=== PATIENT | female | born 1970 | race Caucasian/White ===

== ENCOUNTER → 2017-11-02 | Outpatient (CLI) | payer OTHER ==
[~2017-11-02] MED LIST: ALBU90OI6; BUDE200IP; FERR325 PO; FLUT.05NI; IBUHYD PO; OMEP20ER PO; PROG100 PO; PROM25; PROM25 PO; RXPROM25 PO
== END | disposition home or self-care (01) ==
LOC: LAB SHORT 10:32 → PLD 10:32
DX: D48.5 Neoplasm of uncertain behavior of skin (principal)
CPT/HCPCS: 88305

== ENCOUNTER → 2020-10-19 | Outpatient (CLI) | payer OTHER ==
[~2020-10-19] MED LIST changes: +BUSP10 PO; +ESTROGEN CREAM; +NALTREXONE PO
== END | disposition home or self-care (01) ==
LOC: LAB 12:28 → LAB SHORT 12:28
DX: D18.01 Hemangioma of skin and subcutaneous tissue (principal)
CPT/HCPCS: 88305

== ENCOUNTER 2022-05-02 05:57 | Day surgery (SDC) | payer BC ==
[~2022-05-02] VITALS: Ht 170.2 cm; Wt 57.4 kg
[~2022-05-02 05:57] MED LIST changes: -ESTROGEN CREAM; +ESTROGEN CREAM TOP; +TRAM50 PO; +[UNRECOGNIZED DRUG - OTHER] PO
--- NOTE | 2022-05-02 06:58 | NUR ---
History, Chart, Medications and Allergies reviewed before start of procedure. Lungs clear T/O to Auscultation. Patient confirms NPO status and agrees with scheduled surgery. Pre-Op teaching done. Pt verbalizes understanding. PT ALLERGIES RECONCILED WITH PT. AND REPORTED TO DR KHANNA. PT BELONGINGS PLACED UNDERNEATH [facility] FOR SAFEKEEPING.
--- NOTE | 2022-05-02 07:35 | NUR ---
DR KHANNA OKAYED TO GIVE OXYCODONE PREOP. PT HEARING AIDS GIVEN TO FOR SAFEKEEPING.
--- NOTE | 2022-05-02 12:07 | NUR ---
PT ARRIVED TO THE ROOM AT 1105. PT'S AT THE BEDSIDE. PT RATED PAIN AT 5/10 AND STATED PAIN WAS TOLERABLE. ALLERGIES CLARIFIED AND UPDATED IN COMPUTER, ALLERGIES ALSO WRITTEN ON THE WHITEBOARD IN PT'S ROOM. WILL CONTINUE TO MONITOR.
--- NOTE | 2022-05-02 12:13 | NUR ---
LOW BLOOD PRESSURE PT'S BLOOD PRESSURE IS LOW AT THIS TIME 88/49. PT IS ASYMPTOMATIC. HR DID INCREASE TO 90. SURGICAL SITE IS WNL WITH NO INCREASED SWELLING. WILL CONINUE TO MONITOR AND PROVIDE HYDRATION. PT EDUCATED ABOUT SIGNS/SYMPTOMS OF LOW BLOOD PRESSURE. WILL CONTINUE TO MONITOR.
--- NOTE | 2022-05-02 20:05 | NUR ---
SHIFT SUMMARY PT IS POD #0 FROM R HIP REPAIR WITH DR. KHANNA. PT HAS BEEN OOB AND WALKED TO THE BATHROOM. SHE HAS VOIDED. PT TOLERATED PO. PAIN MANAGED WITH OXYCODONE. PT HAS HAD A LOW BLOOD PRESSURE. BOLUS OF NS GIVEN WITHOUT IMPROVEMENT IN BP. PT REMAINED ASYMPTOMATIC AFTER BOLUS AND IS VOIDING. DR. KHANNA NOTIFIED OF CONTINUED LOW BP, WAITING FOR RETURN CALL-COLBY SOLIS NOTIFIED. IV FLUIDS RUNNING ORDERED. REPORT GIVEN TO COLBY SAWANT.
--- NOTE | 2022-05-02 20:30 | NUR ---
BP: DR KHANNA NOTIFIED OF PT'S ONGOING HYPOTENSION. PT REMAINS ASYMPTOMATIC. NO NEW ORDERS REC AT THIS.
[2022-05-03 04:31] LABS: BASOPHILS ABSOLUTE AUTO 0.01 K/mm3 (0.00-0.23); BASOPHILS PERCENT AUTO 0 % (0-2); EOSINOPHILS ABSOLUTE AUTO 0.01 K/mm3 (0.00-0.68); EOSINOPHILS PERCENT AUTO 0 % (0-6); Hemoglobin 9.5 g/dL (11.5-16.0); IMMATURE GRAN ABSOLUTE AUTO 0.01 K/mm3 (0.00-0.10); IMMATURE GRAN PERCENT AUTO 0 % (0-1); LYMPHOCYTES ABSOLUTE AUTO 1.05 K/mm3 (0.84-5.20); LYMPHOCYTES PERCENT AUTO 15 % (21-46); MONOCYTES ABSOLUTE AUTO 0.82 K/mm3 (0.16-1.47); MONOCYTES PERCENT AUTO 12 % (4-13); Mean Corpuscular HGB 32.9 pg (26.0-34.0); Mean Corpuscular HGB Conc 35.2 g/dL (31.5-36.5); Mean Corpuscular Volume 93 fL (80-100); Mean Platelet Volume 9.8 fL (9.1-12.4); NEUTROPHILS ABSOLUTE AUTO 5.21 K/mm3 (1.96-9.15); NEUTROPHILS PERCENT AUTO 73 % (41-73); Platelet Count 145 K/mm3 (150-400); RDW Coefficient Variation 11.7 % (11.7-14.2); RDW Standard Deviation 40.2 fL (35.1-46.3); Red Blood Cell Count 2.89 M/mm3 (3.80-5.20); White Blood Cell Count 7.11 K/mm3 (4.00-11.30)
[2022-05-03 05:05] LABS: Magnesium, Blood 1.9 mg/dL (1.6-2.4)
[2022-05-03 06:37] LABS: Bun/Creatinine Ratio 15.6 (12.0-20.0); Calcium, Blood 7.9 mg/dL (8.5-10.1); Creatinine, Blood 0.58 mg/dL (0.40-1.00); Potassium, Blood 3.9 mmol/L (3.5-5.5)
--- NOTE | 2022-05-03 07:33 | NUR ---
POD 1 R SERENE. PT BP REMAINED HYPO T/O NIGHT, PT ASYMPTOMATIC. INCISION CDI, SITE SOFT TO PALP. CAP REFILL WNL, PT DENIED N/T. PAIN MGD W/TORADOL AND 1 OXYCODONE W/REP RELIEF. PT URVASHI REG PO, DENIED N/V. PT IS VOIDING URINE W/O DIFFICULTY, IVF CONT PER ORDERS R/T LOW BP. PT UP OOB W/FWW+SBA, URVASHI WELL. PT UP IN CHAIR THIS AM, BEDSIDE REPORT GIVEN TO Susi EDWARDS RN.
[2022-05-03] MEDS ORDERED: OXYC5 PO (09:18)
[2022-05-03] MEDS ORDERED: ASPI81CH PO (09:18)
--- NOTE | 2022-05-03 09:47 | NUR ---
DISCHARGE PT HAS CLEARED THERAPY. PAIN WELL CONTROLLED. EATING, DRINKING, & VOIDING WELL. POLAR PACK SENT w/ PT. AQUACEL GIVEN IN CASE OF EXTRA DRNG. ESCORTED OUT VIA W/C. AWARE OF HYPOTENSION; PT CONTINUES TO BE ASYMPTOMATIC.
== END 2022-05-03 10:00 | disposition home or self-care (01) ==
LOC: SURS 05:57 → ORSCMMR 05:57 → ORD 07:30 → SURS 10:33 → ORSCMMR 05-03 10:00
PROVIDERS: Orthopaedic Surgery
PROC: 0SR90J9 Replacement of Right Hip Joint with Synthetic Substitute, Cemented, Open Approach (ICD-10-PCS; principal; 2022-05-02 07:30)
DX: M16.11 Unilateral primary osteoarthritis, right hip (principal); E03.9 Hypothyroidism, unspecified; Z79.899 Other long term (current) drug therapy
CPT/HCPCS: 27130; 0054T; 36415; 72170; 80048; 83735; 85025; 97110; 97161; 97530; A9270; C1776; J0171; J0690; J0735; J1100; J1885; J2250; J2370; J2405; J2704; J2795; J3010; J7030; J7120